=== PATIENT | female | born 1960 | race Caucasian/White ===

== ENCOUNTER 2019-01-11 11:10 | Emergency (ER) | payer BC ==
[~2019-01-11] VITALS: Ht 160 cm; Wt 60.3 kg
[~2019-01-11 11:10] MED LIST: MULTIVITAMIN PO; PAXIL10 MG PO
[2019-01-11] MEDS ORDERED: KETOROLAC TROMETHAMINE 60 MG/2 ML VIAL ONE (11:27)
[2019-01-11] MEDS ORDERED: DEXAMETHASONE SOD PHOS 10 MG/1 ML VIAL ONE (11:27)
[2019-01-11] MEDS ORDERED: KETOROLAC TROMETHAMINE 60 MG/2 ML VIAL IM NR (11:30)
[2019-01-11] MEDS ORDERED: DEXAMETHASONE SOD PHOS 10 MG/1 ML VIAL IM NR (11:30)
== END 2019-01-11 11:35 | disposition home or self-care (01) ==
LOC: ER 11:10
DX: M54.32 Sciatica, left side (principal); S39.012A Strain of muscle, fascia and tendon of lower back, initial encounter; X50.0XXA Overexertion from strenuous movement or load, initial encounter; Y99.0 Civilian activity done for income or pay
CPT/HCPCS: 99283; J1100; J1885

== ENCOUNTER 2020-05-26 15:33 | Emergency (ER) | payer BC ==
[~2020-05-26] VITALS: Ht 160 cm; Wt 66.2 kg
== END 2020-05-26 20:55 | disposition left against medical advice (07) ==
LOC: ER 16:44
DX: H92.01 Otalgia, right ear (principal)

== ENCOUNTER 2023-02-26 11:58 | Emergency (ER) | payer SELFPAY ==
[~2023-02-26] VITALS: Ht 160 cm; Wt 64.9 kg
[2023-02-26] MEDS ORDERED: KETOROLAC TROMETHAMINE 30 MG/ML VIAL IM STA (12:05)
[2023-02-26] MEDS ORDERED: TRAMADOL HCL 50 MG TAB PO ONE (12:15)
[2023-02-26 12:30] VITALS: O2SAT 100
[2023-02-26] MEDS ORDERED: ULTRAM 50MG50 MG PO (13:46)
[2023-02-26] MEDS ORDERED: KETOROLAC TROME10 MG PO (13:46)
== END 2023-02-26 14:00 | disposition home or self-care (01) ==
LOC: ER 12:05
DX: M25.562 Pain in left knee (principal)
CPT/HCPCS: 73562; 99282; J1885